=== PATIENT | female | born 2000 | race Two or more races ===

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

== ENCOUNTER 2024-03-15 13:27 | Emergency (ER) | payer MEDICAID ==
[~2024-03-15] VITALS: Ht 157.5 cm; Wt 59.2 kg
[~2024-03-15 13:27] MED LIST: CLIN1CAP70 PO; IBUP-1454 PO; ZOFR4T PO
--- NOTE | 2024-03-15 13:43 | ED.PDOC ---
History of Present Illness HPI Comments 24-year-old female who comes in with chief complaint of lower abdominal pain. The patient states that this morning she developed some constipation as well as diarrhea off and on. She states that the pain is a 6/10. She states that she has had similar pain before but she underwent right ovarian surgery. The patient denies any dysuria, fever or vomiting. At this time, the patient states that it was almost difficult to walk because of the pain. Time Seen by MD: 13:33 Primary Care Provider: KACY Reviewed Notes: Nurses Notes, Medications, Allergies (No allergies to medications) Allergies: Coded Allergies: NO KNOWN ALLERGIES (Unverified , 06/13/17) Home Meds Active Scripts Nitrofurantoin Monohydrate Mac (Macrobid) 100 Mg Cap, 100 MG PO BID for 5 Days, #10 CAP Prov:DESTINEE LEW MD 03/15/24 Ibuprofen (Ibuprofen) 600 Mg Tab, 1 TAB PO TID, #30 TAB Prov:NISH CAMARGO 07/11/23 Clindamycin Hcl (Clindamycin Hcl) 300 Mg Cap, 1 CAP PO TID, #30 CAP Prov:NISH CAMARGO 07/11/23 Ondansetron Odt 4MG Tab (ZOFRAN PO) 4 Mg Tb, 4 MG PO DAILY for 5 Days, #5 TAB ODT TAB-DISSOLVE IN MOUTH, THEN SWALLOW Prov:MYCHAL LOYOLA MD 05/26/23 Information Source: Patient Mode of Arrival: Ambulatory Severity: Moderate Timing: Hours Duration: Since onset Prehospital treatment: None Associated signs and symptoms No associated vomiting but there is some constipation and diarrhea Past Medical History PAST MEDICAL HISTORY: Denies Surgical History (Other): 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 Family History Family History: No family hx of Cancer, No family hx of DM, No family hx of Heart yehuda Social History Smoker: Non-Smoker Alcohol: Occasionally Drugs: Marijuana Lives In: Home Constitutional: denies: chills, diaphoresis, fatigue, fever, malaise, sweats, weakness, others EENTM: denies: blurred vision, double vision, ear bleeding, ear discharge, ear drainage, ear pain, ear ringing, eye pain, eye redness, hearing loss, mouth pain, mouth swelling, nasal discharge, nose bleeding, nose congestion, nose pain, photophobia, tearing, throat pain, throat swelling, voice changes, others Respiratory: denies: cough, hemoptysis, orthopnea, SOB at rest, shortness of breath, SOB with excertion, stridor, wheezing, others Cardiovascular: denies: chest pain, dizzy spells, diaphoresis, Dyspnea on exertion, edema, irregular heart beat, left arm pain, lightheadedness, palpitations, PND, syncope, others Gastrointestinal: reports: abdominal pain, constipated, diarrhea; denies: abdomen distended, blood streaked bowels, dysphagia, difficulty swallowing, hematemesis, melena, nausea, poor appetite, poor fluid intake, rectal bleeding, rectal pain, vomiting, others Genitourinary: denies: abnormal vagina bleeding, burning, dyspareunia, dysuria, flank pain, frequency, hematuria, incontinence, pain, , vagina discharge, urgency, others Neurological: denies: dizziness, fainting, headache, left sided numbness, left sided weakness, numbness, paresthesia, pre-existing deficit, right sided numbness, right sided weakness, seizure, speech problems, tingling, tremors, weakness, others Musculoskeletal: denies: back pain, gout, joint pain, joint swelling, muscle pain, muscle stiffness, neck pain, others Integumetry: denies: bruises, change in color, change in hair/nails, dryness, laceration, lesions, lumps, rash, wounds, others Allergic/Immunocompromised: denies: Difficulty Healing, Frequent Infections, Hives, Itching, others Hematologic/Lymphatic: denies: anemia, blood clots, easy bleeding, easy bruising, swollen glands, others Endocrine: denies: excessive hunger, excessive sweating, excessive thirst, excessive urination, flushing, intolerance to cold, intolerance to heat, unexplained weight gain, unexplained weight loss, others Psychiatric: denies: anxiety, bipolar disorder, depression, hopeless, panic disorder, schizophrenia, sleepless, suicidal, others Physical Exam General Appearance: Mild Distress HEENT: Normal ENT Inspection, Pharynx Normal, TMs Normal Neck: Full Range of Motion, Non-Tender, Normal, Normal Inspection Respiratory: Chest Non-Tender, Lungs Clear, No Accessory Muscle Use, No Respiratory Distress, Normal Breath Sounds Cardiovascular: No Edema, No JVD, No Murmur, No Gallop, Normal Peripheral Pulses, Regular Rate/Rhythm Breast Exam: Deferred Gastrointestinal: No Organomegaly, No Pulsatile Mass, Normal Bowel Sounds, Soft, Suprapubic, Tenderness Genitalia: Deferred Pelvic: Deferred Rectal: Deferred Extremities: No calf tenderness, Normal capillary refill, Normal inspection, Normal range of motion, Non-tender, No pedal edema Musculoskeletal : Apperance: Normal Neurologic: Alert, wheel filler II-XII nml as Tested, No Motor Deficits, Normal Affect, Normal Mood, No Sensory Deficits Cerebellar Function: Normal Reflexes: Normal Skin: Dry, Normal Color, Warm Lymphatic: No Adenopathy Was a procedure done? Was a procedure done?: No Differential Dx Considerations may include: Appendicitis, ovarian cysts, UTI X-Ray, Labs, Meds, VS Vital Signs Date Time Temp Pulse Resp B/P (MAP) Pulse Ox O2 Delivery O2 Flow Rate FiO2 03/15/24 13:55 98.8 99 12 129/73 (91) 99 Lab Test 03/15/24 14:10 03/15/24 14:06 Range/Units White Blood Count 8.6 4.4-10.8 10^3/uL Red Blood Count 4.45 4.0-5.20 10^6/uL Hemoglobin 13.1 12.2-16.2 g/dL Hematocrit 39.0 36.0-46.0 % Mean Corpuscular Volume 87.6 80.0-100.0 fL Mean Corpuscular Hemoglobin 29.4 28.0-32.0 pg Mean Corpuscular Hemoglobin Concent 33.5 32.0-36.0 g/dL Red Cell Distribution Width 14.4 H 11.8-14.3 % Platelet Count 253 140-450 10^3/uL Mean Platelet Volume 8.1 6.9-10.8 fL Neutrophils (%) (Auto) 64.1 37.0-80.0 % Lymphocytes (%) (Auto) 23.9 10.0-50.0 % Monocytes (%) (Auto) 10.1 0.0-12.0 % Eosinophils (%) (Auto) 1.2 0.0-7.0 % Basophils (%) (Auto) 0.7 0.0-2.0 % Neutrophils # (Auto) 5.5 1.6-8.6 10 ^3/uL Lymphocytes # (Auto) 2.1 0.4-5.4 10 ^3/uL Monocytes # (Auto) 0.9 0-1.3 10 ^3/uL Eosinophils # (Auto) 0.1 0-0.8 10 ^3/uL Basophils # (Auto) 0.1 0-0.2 10 ^3/uL Nucleated Red Blood Cells 0.1 % Sodium Level 140 136-145 mmol/L Potassium Level 4.0 3.5-5.1 mmol/L Chloride Level 107 98-107 mmol/L Carbon Dioxide Level 27 20-31 mmol/L Anion Gap 6 5-15 Blood Urea Nitrogen 11 9-23 mg/dL Creatinine 0.87 0.550-1.02 mg/dL Glomerular Filtration Rate Calc 95 >90 mL/min BUN/Creatinine Ratio 12.6 10.0-20.0 Serum Glucose 90 74-106 mg/dL Calcium Level 10.3 8.7-10.4 mg/dL Urine Color Yellow Yellow Urine Clarity Turbid H Clear Urine pH 8.0 5.0-9.0 Urine Specific Guild 1.028 1.001-1.035 Urine Protein 1+ H Negative Urine Ketones Trace Negative Urine Blood Negative Negative /uL Urine Nitrite Negative Negative Urine Bilirubin Negative Negative Urine Urobilinogen Normal Negative mg/dL Urine Leukocyte Esterase Negative Negative /uL Urine RBC 3 0 - 4 /hpf Urine WBC 3 0 - 5 /hpf Urine Squamous Epithelial Cells Few <5 /hpf Urine Bacteria None seen None Seen /hpf Urine Glucose Normal Normal mg/dL Urine Test Negative Negative The urine test is positive for UTI The test is negative The CBC and chemistry panel are within normal limits The patient was being discharged The patient was given a prescription of tramadol as well as Macrobid The patient will return to the emergency department's the condition worsens. Images Reviewed?: Images reviewed and evaluated by me Time of 1ST Reevaluation: 13:43 Reevaluation 1ST: Unchanged Patient Education/Counseling: Diagnosis, Treatment, Prognosis, Need For Follow Up Family Education/Counseling: No Family Present Departure 1 Departure Time of Disposition: 15:00 Impression: Primary Impression: UTI (urinary tract infection) Qualified Codes: N30.00 - Acute cystitis without hematuria Disposition: 01 HOME / SELF CARE / HOMELESS Condition: Fair e-Prescriptions Nitrofurantoin Monohydrate Mac (Macrobid) 100 Mg Cap 100 MG PO BID for 5 Days, #10 CAP Prov: LOUANN,DESTINEE B MD 03/15/24 Discharged With: Self Critical Care Note Critical Care Time?: No Stability Stability form required: No Heart Score Heart Score: Heart Score Response (Comments) Value History N/A 0 EKG N/A 0 Age N/A 0 Risk Factors N/A 0 Troponin N/A 0 Total 0 DESTINEE LEW MD Mar 15, 2024 13:43
[2024-03-15 14:07] LABS: Urine Bacteria None Seen /hpf (None Seen)
[2024-03-15 14:19] LABS: Urine Blood Negative /uL (Negative); Urine Clarity Turbid (Clear); Urine Color Yellow (Yellow); Urine Protein, UAD 1+ (Negative); Urine Specific Gravity 1.028 (1.001-1.035); Urine Urobilinogen Normal (Negative); Urine WBC 3 /hpf (0 - 5)
[2024-03-15 14:23] LABS: Basophils # (auto) 0.1 10 ^3/uL (0-0.2); Basophils % (auto) 0.7 % (0.0-2.0); Eosinophils # (auto) 0.1 10 ^3/uL (0-0.8); Eosinophils % (auto) 1.2 % (0.0-7.0); Hemoglobin 13.1 g/dL (12.2-16.2); Lymphocytes # (auto) 2.1 10 ^3/uL (0.4-5.4); Lymphocytes % (auto) 23.9 % (10.0-50.0); Mean Corpuscular Hemoglobin 29.4 pg (28.0-32.0); Mean Corpuscular Hgb Conc. 33.5 g/dL (32.0-36.0); Mean Corpuscular Volume 87.6 fL (80.0-100.0); Monocytes # (auto) 0.9 10 ^3/uL (0-1.3); Monocytes % (auto) 10.1 % (0.0-12.0); Neutrophils # (auto) 5.5 10 ^3/uL (1.6-8.6); Neutrophils % (auto) 64.1 % (37.0-80.0); Nucleated Red Blood Cells % 0.1 %; Platelet Count (auto) 253 10^3/uL (140-450); Red Blood Cells 4.45 10^6/uL (4.0-5.20); Red Cell Distribution Width 14.4 % (11.8-14.3); White Blood Cell 8.6 10^3/uL (4.4-10.8)
[2024-03-15 14:38] LABS: Chloride 107 mmol/L (98-107); Sodium 140 mmol/L (136-145)
[2024-03-15 14:39] LABS: Anion Gap 6 (5-15); Calcium 10.3 mg/dL (8.7-10.4); Carbon Dioxide 27 mmol/L (20-31)
[2024-03-15 14:44] LABS: BUN/Creatinine Ratio 12.6 (10.0-20.0); Blood Urea Nitrogen 11 mg/dL (9-23); Glucose 90 mg/dL (74-106)
[2024-03-15] MEDS ORDERED: NITR-87 PO (14:59)
[2024-03-15] MEDS: HYDROcodone-ACET 5/325MG TAB PO ONE (15:11)
[2024-03-15 15:28] VITALS: BP 125/70; PULSE 87; RESP 15; TEMP 98.7; O2SAT 98
== END 2024-03-15 15:32 | disposition home or self-care (01) ==
LOC: ER 13:27
DX: N39.0 Urinary tract infection, site not specified (principal); Z79.1 Long term (current) use of non-steroidal anti-inflammatories (NSAID); Z98.890 Other specified postprocedural states; Z32.02 Encounter for pregnancy test, result negative
CPT/HCPCS: 36415; 80048; 81001; 81025; 85025

== ENCOUNTER 2025-01-16 13:53 | Emergency (ER) | payer MEDICAID ==
[~2025-01-16] VITALS: Ht 157.5 cm; Wt 56.1 kg
[~2025-01-16 13:53] MED LIST changes: +NITR-87 PO
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
[2025-01-16 14:52] VITALS: BP 122/80; PULSE 98; RESP 16; TEMP 98.3; O2SAT 97
[2025-01-16] MEDS ORDERED: NAPR-746 PO (15:23)
[2025-01-16] MEDS ORDERED: METH-1181 PO (15:23)
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
== END 2025-01-16 15:30 | disposition home or self-care (01) ==
LOC: ER 13:55
DX: S16.1XXA Strain of muscle, fascia and tendon at neck level, initial encounter (principal); S10.93XA Contusion of unspecified part of neck, initial encounter; V89.2XXA Person injured in unspecified motor-vehicle accident, traffic, initial encounter; Y92.410 Unspecified street and highway as the place of occurrence of the external cause; Y93.89 Activity, other specified; Y99.8 Other external cause status
CPT/HCPCS: 72040

== ENCOUNTER 2025-01-30 04:55 | Emergency (ER) | payer MEDICAID ==
[~2025-01-30] VITALS: Ht 154.9 cm; Wt 53.5 kg
[~2025-01-30 04:55] MED LIST changes: +METH-1181 PO; +NAPR-746 PO
[2025-01-30] MEDS: ONDANSETRON HCL 4 MG/2 ML VIAL IV ONE (05:47)
--- NOTE | 2025-01-30 06:23 | ED.PDOC ---
GI ASSESSMENT HPI Comments 25 y/o F, presents to the ED for CC of abdominal pain. Patient states she has been experiencing suprapubic abdominal pain with associated nausea, vomiting, and diarrhea sudden onset, 1600 yesterday (01/29/25). Patient reports, similar symptoms in the past with previous ovarian cyst rupture in April 2024. Patient relays, that she does smoke marijuana and drink alcohol occasionally. Patient denies fever, chills, sweats, hematemesis, or hematochezia. Chief Complaint: Abdominal Pain Time Seen by MD: 06:00 Primary Care Provider: KACY Reviewed Notes: Nurses Notes, Medications, Allergies Allergies: Coded Allergies: NO KNOWN ALLERGIES (Unverified , 06/13/17) Home Meds Active Scripts Pantoprazole Sodium Sesquihydr (Protonix) 40 Mg Tab, 40 MG PO DAILY, #30 TAB Prov:DESTINEE LEW MD 01/30/25 Ondansetron Odt 4MG Tab (ZOFRAN PO) 4 Mg Tb, 4 MG PO DAILY for 5 Days, #5 TAB ODT TAB-DISSOLVE IN MOUTH, THEN SWALLOW Prov:DESTINEE LEW MD 01/30/25 Methocarbamol (Methocarbamol) 500 Mg Tab, 500 MG PO BID, #20 TAB Prov:NISH CAMARGO 01/16/25 Naproxen (Naproxen) 500 Mg Tab, 500 MG PO BID, #30 TAB Prov:NISH CAMARGO 01/16/25 Nitrofurantoin Monohydrate Mac (Macrobid) 100 Mg Cap, 100 MG PO BID for 5 Days, #10 CAP Prov:DESTINEE LEW MD 03/15/24 Ibuprofen (Ibuprofen) 600 Mg Tab, 1 TAB PO TID, #30 TAB Prov:NISH CAMARGO 07/11/23 Clindamycin Hcl (Clindamycin Hcl) 300 Mg Cap, 1 CAP PO TID, #30 CAP Prov:NISH CAMARGO 07/11/23 Information Source: Patient Mode of Arrival: Ambulatory Timing: Hours Duration: Since onset Prehospital treatment: None Quality: None Vomitus: Watery Stool: Watery Severity: Moderate Recent: None Recent Hx of: None Pain Location: Suprapubic Modifying Factors: Nothing Associated sign and symptoms: Nausea, Vomiting, Diarrhea, Abdominal Pain Past Medical History PAST MEDICAL HISTORY: Denies Surgical History: Denies all 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 Family History Family History: Reviewed,noncontributory to illness, No family hx of Cancer, No family hx of DM, No family hx of Heart ye[place] Social History Smoker: Non-Smoker Alcohol: Occasionally Drugs: Marijuana Lives In: Home Constitutional: denies: chills, diaphoresis, fatigue, fever, malaise, sweats, weakness, others EENTM: denies: blurred vision, double vision, ear bleeding, ear discharge, ear drainage, ear pain, ear ringing, eye pain, eye redness, hearing loss, mouth pain, mouth swelling, nasal discharge, nose bleeding, nose congestion, nose pain, photophobia, tearing, throat pain, throat swelling, voice changes, others Respiratory: denies: cough, hemoptysis, orthopnea, SOB at rest, shortness of breath, SOB with excertion, stridor, wheezing, others Cardiovascular: denies: chest pain, dizzy spells, diaphoresis, Dyspnea on exertion, edema, irregular heart beat, left arm pain, lightheadedness, palpitations, PND, syncope, others Gastrointestinal: reports: abdominal pain, nausea, vomiting; denies: abdomen distended, blood streaked bowels, constipated, diarrhea, dysphagia, difficulty swallowing, hematemesis, melena, poor appetite, poor fluid intake, rectal bleeding, rectal pain, others Genitourinary: denies: abnormal vagina bleeding, burning, dyspareunia, dysuria, flank pain, frequency, hematuria, incontinence, pain, , vagina discharge, urgency, others Neurological: denies: dizziness, fainting, headache, left sided numbness, left sided weakness, numbness, paresthesia, pre-existing deficit, right sided num bness, right sided weakness, seizure, speech problems, tingling, tremors, weakness, others Musculoskeletal: denies: back pain, gout, joint pain, joint swelling, muscle pain, muscle stiffness, neck pain, others Integumetry: denies: bruises, change in color, change in hair/nails, dryness, laceration, lesions, lumps, rash, wounds, others Allergic/Immunocompromised: denies: Difficulty Healing, Frequent Infections, Hives, Itching, others Hematologic/Lymphatic: denies: anemia, blood clots, easy bleeding, easy bruising, swollen glands, others Endocrine: denies: excessive hunger, excessive sweating, excessive thirst, excessive urination, flushing, intolerance to cold, intolerance to heat, unexplained weight gain, unexplained weight loss, others Psychiatric: denies: anxiety, bipolar disorder, depression, hopeless, panic disorder, schizophrenia, sleepless, suicidal, others All Other Systems: Reviewed and Negative Physical Exam General Appearance: Mild Distress HEENT: Normal ENT Inspection, Pharynx Normal, TMs Normal Neck: Full Range of Motion, Non-Tender, Normal, Normal Inspection Respiratory: Chest Non-Tender, Lungs Clear, No Accessory Muscle Use, No Respiratory Distress, Normal Breath Sounds Cardiovascular: No Edema, No JVD, No Murmur, No Gallop, Normal Peripheral Pulses, Regular Rate/Rhythm Breast Exam: Deferred Gastrointestinal: No Organomegaly, Non Tender, No Pulsatile Mass, Normal Bowel Sounds, Soft Genitalia: Deferred Pelvic: Deferred Rectal: Deferred Extremities: No calf tenderness, Normal capillary refill, Normal inspection, Normal range of motion, Non-tender, No pedal edema Musculoskeletal : Apperance: Normal Neurologic: Alert, paraeducator II-XII nml as Tested, No Motor Deficits, Normal Affect, Normal Mood, No Sensory Deficits Cerebellar Function: Normal Reflexes: Normal Skin: Dry, Normal Color, Warm Lymphatic: No Adenopathy Was a procedure done? Was a procedure done?: No GI differential Dx Differential Diagnosis: Diverticular disease, Gastritis/PUD, Gastroenteritis, Inflammatory BD, Drug toxicity, Bacterial, Viral X-Ray, Labs, Meds, VS Vital Signs Date Time Temp Pulse Resp B/P (MAP) Pulse Ox O2 Delivery O2 Flow Rate FiO2 01/30/25 06:39 63 20 168/89 01/30/25 05:52 97.8 63 20 168/89 (115) 99 97.8 01/30/25 05:52 65 20 99 Room Air 01/30/25 04:57 97.5 116 25 147/90 96 97.5 Lab Test 01/30/25 06:38 Range/Units White Blood Count 12.4 H 4.4-10.8 10^3/uL Red Blood Count 4.83 4.0-5.20 10^6/uL Hemoglobin 14.5 12.2-16.2 g/dL Hematocrit 43.6 36.0-46.0 % Mean Corpuscular Volume 90.2 80.0-100.0 fL Mean Corpuscular Hemoglobin 30.0 28.0-32.0 pg Mean Corpuscular Hemoglobin Concent 33.3 32.0-36.0 g/dL Red Cell Distribution Width 14.7 H 11.8-14.3 % Platelet Count 279 140-450 10^3/uL Mean Platelet Volume 8.3 6.9-10.8 fL Neutrophils (%) (Auto) 91.3 H 37.0-80.0 % Lymphocytes (%) (Auto) 4.8 L 10.0-50.0 % Monocytes (%) (Auto) 3.5 0.0-12.0 % Eosinophils (%) (Auto) 0.0 0.0-7.0 % Basophils (%) (Auto) 0.4 0.0-2.0 % Neutrophils # (Auto) 11.3 H 1.6-8.6 10 ^3/uL Lymphocytes # (Auto) 0.6 0.4-5.4 10 ^3/uL Monocytes # (Auto) 0.4 0-1.3 10 ^3/uL Eosinophils # (Auto) 0 0-0.8 10 ^3/uL Basophils # (Auto) 0 0-0.2 10 ^3/uL Nucleated Red Blood Cells 0.0 % Sodium Level 141 136-145 mmol/L Potassium Level 4.0 3.5-5.1 mmol/L Chloride Level 106 98-107 mmol/L Carbon Dioxide Level 21 20-31 mmol/L Anion Gap 14 5-15 Blood Urea Nitrogen 9 9-23 mg/dL Creatinine 0.81 0.550-1.02 mg/dL Glomerular Filtration Rate Calc 103 >90 mL/min BUN/Creatinine Ratio 11.1 10.0-20.0 Serum Glucose 136 H 74-106 mg/dL Calcium Level 10.2 8.7-10.4 mg/dL Lipase 25 12-53 U/L Current Medications Medications (Trade) Dose Ordered Sig/Zayda Route Start Time Stop Time Status Last Admin Ondansetron HCl (Zofran) 4 mg ONCE ONCE IV 01/30/25 05:45 01/30/25 05:47 DC 01/30/25 05:47 Sodium Chloride 1,000 ml @ 1,000 mls/hr Q1H ONCE IVB 01/30/25 06:30 105/25 07:29 01/30/25 06:27 Pantoprazole Sodium (Protonix) 40 mg ONCE ONCE IV 01/30/25 06:30 01/30/25 06:31 DC 01/30/25 06:40 Prochlorperazine Edisylate (Compazine Inj) 10 mg ONCE ONCE IV 01/30/25 06:30 01/30/25 06:31 DC 01/30/25 06:40 Morphine Sulfate 2 mg ONCE ONCE IV 01/30/25 06:30 01/30/25 06:31 DC 01/30/25 06:39 An IV Hep-Lock was ordered. The patient was given normal saline at 1 L bolus. The patient was also given Zofran initially a 4 mg IV push We followed this with Protonix 40 mg IV push The patient was then given Compazine 10 mg IV push for further vomiting The patient was given morphine 2 mg IV push The patient's chemistry panel is within normal limits. The CBC shows a slightly elevated white blood cell count of 12.4 which is most likely consistent with the patient's vomiting At this time, the patient is being discharged and will follow up with the primary care doctor The patient was given a prescription of Protonix and Zofran Medical decision making was made to discharge this patient basically because the patient does have a history of chronic marijuana use. The symptoms seemed to be consistent with hyperemesis secondary to cannabinoid usage The patient is discharged Time of 1ST Reevaluation: 06:30 Reevaluation 1ST: Unchanged Patient Education/Counseling: Diagnosis, Treatment, Prognosis, Need For Follow Up Family Education/Counseling: Diagnosis, Treatment, Prognosis, Need For Follow Up SEPSIS Sepsis Screen Date sepsis recognized/suspect: Jan 30, 2025 Time Sepsis recognized/suspect: 0555 Recent Procedure: No On Antibiotic Therapy: No Respiratory Rate >20: No Heart Rate >90: No Temp<36 C (96.8 F) or >38.3 C: No SBP <90 or MAP <65 mmHG: No New Acute Mental Status Change: No Is the patient on CPAP, BIPAP,: No Physician Orders Urinalysis (01/30/25 06:17) Sodium Chloride 0.9% (01/30/25 06:30) Heplock Iv (01/30/25 06:17) Test, Urine (01/30/25 06:17) Vital Signs Date Time Temp Pulse Resp B/P (MAP) Pulse Ox O2 Delivery O2 Flow Rate FiO2 01/30/25 06:39 63 20 168/89 01/30/25 05:52 97.8 63 20 168/89 (115) 99 97.8 01/30/25 05:52 65 20 99 Room Air 01/30/25 04:57 97.5 116 25 147/90 96 97.5 Laboratory Tests Test 01/30/25 06:38 White Blood Count 12.4 10^3/uL (4.4-10.8) H Medications Medications Dose Ordered Sig/Zayda Route Start Time Stop Time Status Last Admin Dose Admin Morphine Sulfate 2 mg ONCE ONCE IV 01/30/25 06:30 01/30/25 06:31 DC 01/30/25 06:39 Ondansetron HCl 4 mg ONCE ONCE IV 01/30/25 05:45 01/30/25 05:47 DC 01/30/25 05:47 Pantoprazole Sodium 40 mg ONCE ONCE IV 01/30/25 06:30 01/30/25 06:31 DC 01/30/25 06:40 Prochlorperazine Edisylate 10 mg ONCE ONCE IV 01/30/25 06:30 01/30/25 06:31 DC 01/30/25 06:40 Sodium Chloride 1,000 ml @ 1,000 mls/hr Q1H ONCE IVB 01/30/25 06:30 01/30/25 07:29 01/30/25 06:27 Departure 1 Departure Time of Disposition: 07:29 Impression: Primary Impression: Cannabinoid hyperemesis syndrome Disposition: 01 HOME / SELF CARE / HOMELESS Condition: Fair e-Prescriptions Pantoprazole Sodium Sesquihydr (Protonix) 40 Mg Tab 40 MG PO DAILY, #30 TAB Prov: DESTINEE LEW MD 01/30/25 Ondansetron Odt 4MG Tab (ZOFRAN PO) 4 Mg Tb 4 MG PO DAILY for 5 Days, #5 TAB ODT TAB-DISSOLVE IN MOUTH, THEN SWALLOW Prov: DESTINEE LEW MD 01/30/25 Discharged With: Self, Relative (Mother) Critical Care Note Critical Care Time?: No Stability Stability form required: No Heart Score Heart Score: Heart Score Response (Comments) Value History N/A 0 EKG N/A 0 Age N/A 0 Risk Factors N/A 0 Troponin N/A 0 Total 0 I personally scribed for DESTINEE LEW MD ([email or web address]) on 01/30/25 at 06:23. Electronically submitted by Marissa Meyers ([email or web address]). DESTINEE LEW MD Jan 30, 2025 06:23
[2025-01-30] MEDS: SODIUM CHLORIDE 0.9% 1,000 ML IVB ONE (06:27)
[2025-01-30] MEDS ORDERED: MORPHINE SULFATE 4 MG/ML SYR/VIAL IV ONE (06:30)
[2025-01-30] MEDS: MORPHINE SULFATE INJ 2 MG/ml SYRG IV ONE (06:39)
[2025-01-30] MEDS: PROCHLORPERAZINE EDISYLATE 5 MG/ML 2ML VIAL IV ONE (06:40)
[2025-01-30] MEDS: PANTOPRAZOLE 40 MG/10 ML VIAL INJ IV ONE (06:40)
[2025-01-30] MEDS: MORPHINE SULFATE 4 MG/ML SYR/VIAL ONE (06:40)
[2025-01-30 07:05] LABS: Hematocrit 43.6 % (36.0-46.0); Hemoglobin 14.5 g/dL (12.2-16.2); Mean Corpuscular Hemoglobin 30.0 pg (28.0-32.0); Mean Corpuscular Volume 90.2 fL (80.0-100.0); Nucleated Red Blood Cells % 0.0 %
[2025-01-30 07:15] LABS: Chloride 106 mmol/L (98-107); Potassium 4.0 mmol/L (3.5-5.1); Sodium 141 mmol/L (136-145)
[2025-01-30 07:16] LABS: Anion Gap 14 (5-15); Calcium 10.2 mg/dL (8.7-10.4); Carbon Dioxide 21 mmol/L (20-31)
[2025-01-30 07:21] LABS: BUN/Creatinine Ratio 11.1 (10.0-20.0); Lipase 25 U/L (12-53)
[2025-01-30 07:25] LABS: Blood Urea Nitrogen 9 mg/dL (9-23); Glucose 136 mg/dL (74-106)
[2025-01-30] MEDS ORDERED: PANT40TA2 PO (07:28)
[2025-01-30] MEDS ORDERED: ZOFR4T PO (07:28)
[2025-01-30 07:40] VITALS: BP 124/78; PULSE 78; RESP 16; TEMP 98.4; O2SAT 97
== END 2025-01-30 07:43 | disposition home or self-care (01) ==
LOC: ER 04:55
DX: R11.16 Cannabis hyperemesis syndrome (principal); F12.90 Cannabis use, unspecified, uncomplicated; F10.90 Alcohol use, unspecified, uncomplicated; Z79.899 Other long term (current) drug therapy; Z79.1 Long term (current) use of non-steroidal anti-inflammatories (NSAID); Y90.9 Presence of alcohol in blood, level not specified
CPT/HCPCS: 36415; 80048; 83690; 85025; 96361; 96374; 96375; 99284; J0780; J2270; J2405; J2470; J7030